=== PATIENT | male | born 1990 | race Caucasian/White ===

== ENCOUNTER 2017-02-11 19:07 | Emergency (ER) | payer OTHER ==
[2017-02-11 20:32] VITALS: BP 122/80
--- NOTE | 2017-02-11 21:00 | UC ---
HPI Febrile Illness - HPI Summary HPI Summary: Started getting neck pain and aches 3 days ago, felt feverish yesterday with back pain and lots of chills and sweating today (temp almost up to 101F today). No ST, cough, nasal congestion, n/v/d. Was in the [place] 2 weeks ago and saw lots of ticks crawling, no known tick bites. Here out of concern for lyme. - History of Current Complaint Chief Complaint: UCGeneralIllness Time Seen by Provider: 02/11/17 20:38 Hx Obtained From: Patient Onset/Duration: Started Days Ago Timing: Constant Initial Severity: Mild Current Severity: Moderate Aggravating Factors: Nothing Alleviating Factors: OTC Medicine Associated Signs and Symptoms: Arthralgia, Chills, Headache, Joint Pain, Myalgia - Allergy/Home Medications Allergies/Adverse Reactions: Allergies Allergy/AdvReac Type Severity Reaction Status Date / Time No Known Allergies Allergy Verified 02/11/17 20:32 PMH/Surg Hx/FS Hx/Imm Hx Previously Healthy: Yes - Cancer History Hx Hematologic Symptoms: No Hx Chemotherapy: No Hx Radiation Therapy: No Hx Palliative Cancer Treatment: No - Surgical History Surgery Procedure, Year, and Place: flexor digitoris profundum repair; AC reconstruction repair L shoulder; tonsiils and adenoids Hx Anesthesia Reactions: No Infectious Disease History: No Infectious Disease History: Denies: History Other Infectious Disease, Traveled Outside the [place] in Last 30 Days - Family History Known Family History: Negative: Blood Disorder - Social History Occupation: Employed Full-time Lives: Alone Alcohol Use: Rare Substance Use Type: Reports: None Smoking Status (MU): Never Smoked Tobacco Review of Systems Constitutional: Fever, Chills, Fatigue Skin: Negative Eyes: Negative ENT: Negative Respiratory: Negative Cardiovascular: Negative Gastrointestinal: Negative Genitourinary: Negative Motor: Negative Neurovascular: Negative Musculoskeletal: Arthralgia, Myalgia Neurological: Negative Psychological: Negative All Other Systems Reviewed And Are Negative: Yes Physical Exam Triage Information Reviewed: Yes Appearance: No Pain Distress, Well-Nourished Vital Signs: Initial Vital Signs Temp 96.5 F 02/11/17 20:27 Pulse 77 02/11/17 20:27 Resp 18 02/11/17 20:27 BP 122/80 02/11/17 20:27 Pulse Ox 100 02/11/17 20:27 Vital Signs Reviewed: Yes Eye Exam: Normal Eyes: Positive: Conjunctiva Clear ENT Exam: Normal ENT: Positive: Normal ENT inspection, Hearing grossly normal, Pharynx normal, TMs normal Dental Exam: Normal Neck exam: Normal Neck: Positive: Supple, Nontender, No Lymphadenopathy Respiratory Exam: Normal Respiratory: Positive: Chest non-tender, Lungs clear, Normal breath sounds, No respiratory distress, No accessory muscle use Cardiovascular Exam: Normal Cardiovascular: Positive: RRR, No Murmur Musculoskeletal Exam: Normal Neurological Exam: Normal Neurological: Positive: Alert Psychological Exam: Normal Skin Exam: Other - very sweaty on exam Skin: Negative: significant lesion(s) - after extensive skin check, no red areas noted. Course/Dx - Course Course Of Treatment: explained the importance of follow-up lyme testing in 2 weeks if this round is negative, as it can be too early for seropositive result. - Diagnoses Clinic Provider Diagnoses: fever Discharge - Discharge Plan Condition: Stable Disposition: HOME Patient Education Materials: Fever in Adults (ED) Referrals: [facility] [place] PHYSICIAN REFERRAL [Outside] Additional Instructions: Chances are very good that your fever has a benign, viral cause which will resolve on its own. I have sent lyme testing tonight, but if it is negative you will need another round in 2 weeks to confirm. Please see a primary care provider in 2 weeks. If you have severe or worsening symptoms in the mean time, please return here.
== END 2017-02-11 21:37 | disposition home or self-care (01) ==
LOC: UCEAST 19:07
DX: R50.9 Fever, unspecified (principal); M79.1 Myalgia; R51 Headache; M25.50 Pain in unspecified joint
CPT/HCPCS: 86618; 99211; G0463

== ENCOUNTER 2017-05-25 16:19 | Emergency (ER) | payer OTHER ==
[2017-05-25] MEDS ORDERED: Rabies Vaccine, PCEC INJ* 1 ml IM ONE (16:23)
[2017-05-25] MEDS ORDERED: Rabies Immune Globulin 10 ML* 150 UNIT/ML VIAL IM ONE ×2 (16:24→16:49)
[2017-05-25 16:26] VITALS: BP 126/81
[2017-05-25] MEDS ORDERED: Tetan/Diph/Pertus SYR(Tdap)* 0.5 ML SYR(BOOSTRIX) use SYR IM ONE (16:37)
--- NOTE | 2017-05-25 16:38 | UC ---
UC General HPI - HPI Summary HPI Summary: Exposed to a bat in his bedroom--on advise of the health department he is here to get rabies post exposure treatment - History of Current Complaint Hx Obtained From: Patient Timing: Constant Onset Severity: Mild Current Severity: None Associated Signs & Symptoms: Positive: Other <Twyla Acevedo - Last Filed: 05/26/17 10:17> <Herberth Baez - Last Filed: 05/26/17 10:46> - History of Current Complaint Chief Complaint: UCSkin Stated Complaint: RABIES Time Seen by Provider: 05/25/17 16:21 - Allergy/Home Medications Allergies/Adverse Reactions: Allergies Allergy/AdvReac Type Severity Reaction Status Date / Time No Known Allergies Allergy Verified 05/25/17 16:25 PMH/Surg Hx/FS Hx/Imm Hx Previously Healthy: Yes - Surgical History Surgical History: Yes Surgery Procedure, Year, and Place: flexor digitoris profundum repair; AC reconstruction repair L shoulder; tonsiils and adenoids - Family History Known Family History: Positive: None Negative: Blood Disorder Family History: no reported family history reported - Social History Alcohol Use: Rare Substance Use Type: None Smoking Status (MU): Never Smoked Tobacco <Twyla Acevedo - Last Filed: 05/26/17 10:17> Review of Systems Constitutional: Negative Skin: Negative Eyes: Negative ENT: Negative Respiratory: Negative Cardiovascular: Negative Gastrointestinal: Negative Genitourinary: Negative Motor: Negative Neurovascular: Negative Musculoskeletal: Negative Neurological: Negative Psychological: Negative All Other Systems Reviewed And Are Negative: Yes <Twyla Acevedo - Last Filed: 05/26/17 10:17> Physical Exam Triage Information Reviewed: Yes Appearance: Well-Appearing, No Pain Distress, Well-Nourished Vital Signs Reviewed: Yes Eye Exam: Normal Eyes: Positive: Conjunctiva Clear ENT Exam: Normal ENT: Positive: Normal ENT inspection, Hearing grossly normal. Negative: Nasal congestion, Nasal drainage, Trismus, Muffled/hoarse voice Dental Exam: Normal Neck exam: Normal Neck: Positive: Supple, Nontender Respiratory Exam: Normal Respiratory: Positive: Chest non-tender, No respiratory distress, No accessory muscle use Cardiovascular Exam: Normal Cardiovascular: Positive: RRR, Pulses Normal, Brisk Capillary Refill Musculoskeletal Exam: Normal Musculoskeletal: Positive: Strength Intact, ROM Intact, No Edema Neurological Exam: Normal Neurological: Positive: Alert, Muscle Tone Normal Psychological Exam: Normal Skin Exam: Normal <Twyla Acevedo - Last Filed: 05/26/17 10:17> Vital Signs: Initial Vital Signs Temp 36.4 C 05/25/17 16:22 Pulse 68 05/25/17 16:22 Resp 16 05/25/17 16:22 BP 126/81 05/25/17 16:22 <Herberth Baez - Last Filed: 05/26/17 10:46> Course/Dx - Course Course Of Treatment: boostrix, rabivert, rig, follow with health department recommendations for further vaccine - Differential Dx - Multi-Symptom Differential Diagnoses: Metabolic Abnormality, Sepsis, Other - Bat exposure, Rabies PEP Provider Diagnoses: Rabies PEP, up date tetanus <Twyla Acevedo - Last Filed: 05/26/17 10:17> Discharge <Twyla Acevedo - Last Filed: 05/26/17 10:17> <Herberth Baez - Last Filed: 05/26/17 10:46> - Discharge Plan Condition: Stable Disposition: HOME Patient Education Materials: Diphtheria/Acellular Pertussis/Tetanus Booster Vaccine (By injection), Rabies (ED), Rabies Vaccine (ED) Referrals: No Primary Care Phys,NOPCP [Primary Care Provider] - Additional Instructions: The remainder of your vaccines will be administered in conjunction with the [facility]---
[2017-05-25] MEDS ORDERED: Rabies VIRUS VACCINE, HDCV* 2.5 UNIT/ML 1 ML IM ONE (16:43)
[2017-05-25] MEDS ORDERED: Rabies Immune Globulin 2 ML* 150 UNITS/ML VIAL IM ONE (16:49)
== END 2017-05-25 17:29 | disposition home or self-care (01) ==
LOC: UCEAST 16:19
DX: Z20.3 Contact with and (suspected) exposure to rabies (principal); Z23 Encounter for immunization
CPT/HCPCS: 90375; 90471; 90472; 90675; 90715; 96372; 99211; G0463

== ENCOUNTER 2017-06-09 08:52 | Emergency (ER) | payer OTHER ==
--- NOTE | 2017-06-09 08:56 | UC ---
Skin Complaint HPI - HPI Summary HPI Summary: 27 YEAR OLD MALE PRESENTS WITH COMPLAINS OF RASH SECONDARY TO POISON IVORY. - History of Current Complaint Time Seen by Provider: 06/09/17 08:55 Stated Complaint: RASH Hx Obtained From: Patient Onset/Duration: Sudden Onset Skin Exposure Onset/Duration: Hours Ago Onset Severity: Moderate Current Severity: Moderate Pain Scale Used: 0-10 Numeric - 5 Location: Discrete - Allergy/Home Medications Allergies/Adverse Reactions: Allergies Allergy/AdvReac Type Severity Reaction Status Date / Time No Known Allergies Allergy Verified 06/09/17 08:55 Review of Systems Constitutional: Negative Skin: Rash Eyes: Negative ENT: Negative Respiratory: Negative Cardiovascular: Negative Gastrointestinal: Negative Genitourinary: Negative Motor: Negative Neurovascular: Negative Musculoskeletal: Negative Neurological: Negative Psychological: Negative All Other Systems Reviewed And Are Negative: Yes PMH/Surg Hx/FS Hx/Imm Hx Previously Healthy: Yes - Surgical History Surgical History: Yes Surgery Procedure, Year, and Place: flexor digitoris profundum repair; AC reconstruction repair L shoulder; tonsiils and adenoids - Family History Known Family History: Positive: None Negative: Blood Disorder Family History: no reported family history reported - Social History Alcohol Use: Rare Substance Use Type: None Smoking Status (MU): Never Smoked Tobacco - Immunization History Most Recent Tetanus Shot: UNKNOWN Physical Exam Triage Information Reviewed: Yes Eye Exam: Normal ENT Exam: Normal Dental Exam: Normal Neck exam: Normal Neck: Positive: 1 Respiratory Exam: Normal Cardiovascular Exam: Normal Abdominal Exam: Normal Musculoskeletal Exam: Normal Neurological Exam: Normal Psychological Exam: Normal Skin: Positive: rashes Course/Dx - Diagnoses Provider Diagnoses: RASH. POISON IVORY Discharge - Discharge Plan Condition: Stable Disposition: HOME Prescriptions: Methylprednisolone [Medrol Dosepak 4 MG*] 4 mg PO .SEE TOR INSTRUCTION #21 tab Triamcinolone 0.1% CREAM(NF) [Kenalog Cream 0.1%(NF)] 1 applic TOPICAL BID PRN # 90 gm PRN Reason: Itching Patient Education Materials: Acute Rash (ED) Referrals: No Primary Care Phys,NOPCP [Primary Care Provider] -
[2017-06-09 08:59] VITALS: BP 120/78
== END 2017-06-09 09:10 | disposition home or self-care (01) ==
LOC: UCEAST 08:52
DX: L23.7 Allergic contact dermatitis due to plants, except food (principal)
CPT/HCPCS: 99211; G0463

== ENCOUNTER 2017-10-24 17:54 | Emergency (ER) | payer OTHER ==
[2017-10-24 18:33] VITALS: BP 124/74
--- NOTE | 2017-10-24 19:40 | UC ---
Eye Complaint HPI - HPI Summary HPI Summary: 3 DAYS OF WORSENING LEFT UPPER EYELID REDNESS AND SWELLING. NO CONJUNCTIVAL INJECTION. NO DRAINAGE. NO VISUAL DISTURBANCES. NO CHAVARRIA OR NAUSEA. USED GENT EYE DROPS HE HAD FROM A PREVIOUS RX AND FEELS IT IS STILL GETTING WORSE. - History of Current Complaint Chief Complaint: UCEye Stated Complaint: eye irritation Time Seen by Provider: 10/24/17 19:08 Hx Obtained From: Patient Onset/Duration: Gradual Onset, Lasting Days, Still Present Timing: Constant Severity Initially: Moderate Severity Currently: Moderate Pain Intensity: 7 Pain Scale Used: 0-10 Numeric Location of Injury: Eye Lid (upper) - LEFT Character: Sharp Aggravating Factor(s): Other - TOUCH Alleviating Factor(s): Nothing Associated Signs And Symptoms: Positive: Swelling. Negative: Photophobia, Drainage (Clear), Drainage (Purulent), Vision Impairment Bilateral, Fever - Allergies/Home Medications Allergies/Adverse Reactions: Allergies Allergy/AdvReac Type Severity Reaction Status Date / Time No Known Allergies Allergy Verified 10/24/17 18:33 PMH/Surg Hx/FS Hx/Imm Hx Previously Healthy: Yes - Surgical History Surgical History: Yes Surgery Procedure, Year, and Place: flexor digitoris profundum repair; AC reconstruction repair L shoulder; tonsiils and adenoids - Family History Known Family History: Positive: None Negative: Hypertension, Blood Disorder Family History: no reported family history reported - Social History Alcohol Use: Rare Substance Use Type: None Smoking Status (MU): Never Smoked Tobacco - Immunization History Most Recent Tetanus Shot: UNKNOWN Review of Systems Constitutional: Negative Eyes: Other - EYELID REDNESS ENT: Negative Respiratory: Negative Cardiovascular: Negative Gastrointestinal: Negative All Other Systems Reviewed And Are Negative: Yes Physical Exam Triage Information Reviewed: Yes Appearance: Well-Appearing, No Pain Distress, Well-Nourished Vital Signs: Initial Vital Signs Temp 98.1 F 10/24/17 18:29 Pulse 84 10/24/17 18:29 Resp 16 10/24/17 18:29 BP 124/74 10/24/17 18:29 Pulse Ox 98 10/24/17 18:29 Vital Signs Reviewed: Yes Eyes: Positive: Conjunctiva Clear, Other: - LEFT UPPER EYELID EDEMA AND ERYTHEMA. TENDER NODULE PALPATED LATERALLY AND BLOCKED GLAND VISUALIZED INNER EYELID. Negative: Discharge ENT: Positive: Hearing grossly normal Neck: Positive: Supple Respiratory: Positive: No respiratory distress, No accessory muscle use Cardiovascular: Positive: Pulses Normal Abdomen Description: Positive: Soft Musculoskeletal: Positive: No Edema Neurological: Positive: Alert Psychological: Positive: Age Appropriate Behavior Skin: Negative: rashes Eye Complaint Course/Dx - Differential Dx/Diagnosis Provider Diagnoses: STYE - LEFT UPPER EYELID Discharge - Discharge Plan Condition: Stable Disposition: HOME Prescriptions: Cephalexin CAP* [Keflex 500 CAP*] 1,000 mg PO BID #28 cap Erythromycin OPHTH.OINT* [Ilotycin OPHTH.OINT*] 1 applic LEFT EYE QID #1 tube Patient Education Materials: Stye (ED) Referrals: Jazzy Jacobs MD [Primary Care Provider] - If Needed Josias Arora MD [Medical Doctor] - 2 Days Additional Instructions: What is a stye? A stye is a red and painful lump on the eyelid. It happens when a small gland on the edge of the eyelid gets infected or inflamed. Styes can occur on the upper or lower eyelids. Most styes get better on their own after a few days to a week. Another word for stye is hordeolum. People sometimes get a stye confused with a different eye problem called a chalazion. A chalazion also causes a lump on the eyelid. But a stye is caused by an infection and is painful. A chalazion is not tender or painful, but it often lasts longer than a stye does. What are the symptoms of a stye? People who have a stye have a red and painful lump on the edge of their eyelid. A stye usually develops over a few days. It can look like a pimple. Styes can cause other symptoms, too, such as tearing and eyelid pain and swelling. Is there a test for a stye? No. But your doctor or nurse should be able to tell if you have a stye by doing an exam and talking with you. Is there anything I can do on my own to feel better? Yes. To ease your symptoms and help your stye get better, you can put warm, wet pressure on the stye. Wet a clean wash cloth with warm water and put it over your stye. When the wash cloth cools, reheat it with warm water and put it back over the stye. Repeat these steps for 5 to 15 minutes, and try to do this 3 to 4 times a day. You should NOT squeeze or pop your stye. Also, you should not wear eye makeup or contact lenses until your stye is all better. Should I see a doctor or nurse? See your doctor or nurse if: -Your stye doesnt go away after you treat it on your own for 1 week -Your stye gets very big, bleeds, or affects your vision -Your whole eye is red, or your whole eyelid is red and swollen -The redness or swelling spreads to your cheek or other parts of your face What treatments might my doctor use? If your stye doesnt get better or if it leads to other problems, your doctor might: -Prescribe a cream or ointment that goes in the eye and on the eyelid -Prescribe antibiotic medicines -Drain the stye Can styes be prevented? Yes. To lower your chances of getting a stye, you can: -Wash your hands before you touch your eyes -Wash your hands before you put in contact lenses and keep your contact lenses clean (if you wear contact lenses) -Take off your eye makeup each night -Not share eye makeup with other people CALL YOUR DANCE TEACHER IF YOUR SYMPTOMS ARE NOT IMPROVING OVER THE NEXT 2 DAYS.
== END 2017-10-24 19:41 | disposition home or self-care (01) ==
LOC: UCEAST 17:54
DX: H00.024 Hordeolum internum left upper eyelid (principal)
CPT/HCPCS: 99212; G0463

== ENCOUNTER 2018-03-27 07:03 | Emergency (ER) | payer OTHER ==
[2018-03-27] MEDS ORDERED: predniSONE TAB* 20 MG PO ONE (07:14)
[2018-03-27 07:17] VITALS: BP 140/98
--- NOTE | 2018-03-27 07:23 | UC ---
Skin Complaint HPI - HPI Summary HPI Summary: PT WAS WEED WHACKING A FEW DAYS AGO AND WENT THROUGH A PATCH OF POISON TREASURE. STARTED DEVELOPING A RED, ITCHY RASH ON RIGHT KNEE, LEFT FOREARM AND GROIN YESTERDAY. NO FEVER. - History of Current Complaint Chief Complaint: UCRash Time Seen by Provider: 03/27/18 07:10 Stated Complaint: RASH Hx Obtained From: Patient Onset/Duration: Gradual Onset, Lasting Days, Still Present Skin Exposure Onset/Duration: Days Ago Timing: Constant Onset Severity: Moderate Current Severity: Moderate Pain Intensity: 0 Pain Scale Used: 0-10 Numeric Character: Pruritus, Redness Aggravating Factor(s): Touch Alleviating Factor(s): Nothing Associated Signs & Symptoms: Positive: Rash Related History: Possible Reaction to: Environmental Exposure - Allergy/Home Medications Allergies/Adverse Reactions: Allergies Allergy/AdvReac Type Severity Reaction Status Date / Time No Known Allergies Allergy Verified 03/27/18 07:17 Review of Systems Constitutional: Negative Skin: Rash Respiratory: Negative Cardiovascular: Negative Gastrointestinal: Negative All Other Systems Reviewed And Are Negative: Yes PMH/Surg Hx/FS Hx/Imm Hx Previously Healthy: Yes - Surgical History Surgical History: Yes Surgery Procedure, Year, and Place: flexor digitoris profundum repair; AC reconstruction repair L shoulder; tonsiils and adenoids - Family History Known Family History: Positive: None Negative: Hypertension, Blood Disorder Family History: no reported family history reported - Social History Alcohol Use: Rare Substance Use Type: None Smoking Status (MU): Never Smoked Tobacco - Immunization History Most Recent Tetanus Shot: UNKNOWN Physical Exam Triage Information Reviewed: Yes Appearance: Well-Appearing, No Pain Distress, Well-Nourished Vital Signs: Initial Vital Signs Temp 97.6 F 03/27/18 07:11 Pulse 94 03/27/18 07:11 Resp 16 03/27/18 07:11 BP 140/98 03/27/18 07:11 Pulse Ox 96 03/27/18 07:11 Vital Signs Reviewed: Yes Eyes: Positive: Conjunctiva Clear ENT: Positive: Hearing grossly normal Neck: Positive: Supple Respiratory: Positive: No respiratory distress, No accessory muscle use Cardiovascular: Positive: Pulses Normal Abdomen Description: Positive: Soft Musculoskeletal: Positive: No Edema Neurological: Positive: Alert Psychological: Positive: Age Appropriate Behavior Skin: Positive: rashes - STREAKY, RED RASH ON RIGHT KNEE AND LEFT FOREARM. NO VESICALES OR WEEPING. Course/Dx - Diagnoses Provider Diagnoses: POISON TREASURE DERMATITIS Discharge - Sign-Out/Discharge Documenting (check all that apply): Discharge/Admit/Transfer - Discharge Plan Condition: Stable Disposition: HOME Prescriptions: predniSONE TAB* [Deltasone TAB*] 50 mg PO DAILY #4 tab Patient Education Materials: Poison Treasure (ED) Referrals: Jazzy Jacobs MD [Primary Care Provider] - If Needed Additional Instructions: USE DAILY HYPOALLERGENIC MOISTURIZING LOTION AVOID HEAT AND HOT WATER YOU MAY TAKE OTC ANTIHISTAMINE DAILY (CLARITIN (LORATADINE), ZYRTEC (CETIRIZINE ) OR MIRTHA (FEXOFENADINE) IN THE MORNING, 25-50MG BENADRYL AT NIGHT) DO NOT SCRATCH KEEP COOL, CLEAN AND DRY USE OTC TOPICAL HYDROCORTISONE SPARINGLY TWICE DAILY ON ITCHY SPOTS. KEEP AWAY FROM MUCOUS MEMBRANES. WASH ALL THE CLOTHES YOU WERE WEARING INCLUDING ANY GARDENING GLOVES AND WIPE DOWN TOOLS. YOUR BLOOD PRESSURE WAS ELEVATED TODAY (140/98). THIS MAY BE DUE TO YOUR ACUTE CONDITION. MONITOR AND FOLLOW-UP WITH YOUR PCP WITHIN 4 WEEKS IF IT HAS NOT RETURNED TO NORMAL. - Billing Disposition and Condition Condition: STABLE Disposition: Home
== END 2018-03-27 07:24 | disposition home or self-care (01) ==
LOC: UCEAST 07:03
DX: L23.7 Allergic contact dermatitis due to plants, except food (principal)
CPT/HCPCS: 99212; G0463; J7512